=== PATIENT | female | born 1975 | race Caucasian/White ===

== ENCOUNTER 2023-09-01 14:14 | Outpatient (AMB) | payer OTHER, SELFPAY ==
--- NOTE | 2023-09-01 16:32 | AM.OFFWIN_ITS ---
Intake Vital Signs 09/01/23 16:33 Height 5 ft 8 in Weight 151 lb BMI 23.0 BP 136/90 H Blood Pressure Location Rt brachial Position Sitting Pulse 72 Pulse Source Pulse Oximeter Temp 97.8 F Temp Source Temporal Artery Scan Pulse Oximetry (%) 98 Oxygen Delivery Method Room Air Intake Visit Reasons: [employer], back pain [phone] Intake Note: pt is here for c/o back pain due to fall on black ice this morning Patient Tobacco Use Status: Never used Tobacco Allergies No Known Allergies Allergy (Verified 09/06/23 17:45) Medication List - Last Reconciled 09/06/23 by José Miguel Castro MD cyclobenzaprine 10 mg PO BEDTIME escitalopram oxalate 10 mg PO DAILY escitalopram oxalate 20 mg PO DAILY meloxicam 15 mg PO DAILY Do you need a note to return to daycare/school/sports/work: Yes HPI [employer]OCIATE, back pain [phone] HPI Details 48-year-old female presents to the [facility] for a sick visit. Patient reports she slipped this morning on the pavement and fell on her side. She is having difficulty and pain on the right side. Worse on taking a deep breath. PFSH Social History Patient Tobacco Use Status: Never used Tobacco Physical Exam Vital Signs: Last Vital Signs Temp 97.8 F 09/01/23 16:33 Pulse 72 09/01/23 16:33 BP 136/90 H 09/01/23 16:33 Pulse Ox 98 09/01/23 16:33 Oxygen Delivery Method Room Air 09/01/23 16:33 BMI result Body Mass Index 23.0 Const General: cooperative and healthy appearing Nutritional Appearance: well nourished Orientation/consciousness: patient oriented x3 Limitations: no limitations HEENT Head: Yes normal to inspection Eyes General: appearance normal, both eyes and all related structures Neck Neck: Yes normal visual inspection Chest Other: No visible bruising. Tenderness on the right side the chest along the rib margins. Resp Effort & Inspection: normal respiratory effort Neuro General: patient oriented x3 Assessment & Plan Assessment & Plan (1) Contusion of ribs: Code(s): S20.219A - Contusion of unspecified front wall of thorax, initial encounter Plan X-ray of the chest shows multiple rib fractures which are not displaced. Patient was advised to take rest and medication prescribed. If symptoms worsen to follow-up here. Orders: Orders XR ribs RT min 3V w CXR1V 09/01/23 S20.219A - Contusion of unspecified front wall of thorax, initial encounter Medications: New cyclobenzaprine 10 mg PO BEDTIME 14 tabs 0RF cyclobenzaprine 10 mg PO BEDTIME 14 tabs 0RF meloxicam 15 mg PO DAILY 14 tabs 0RF meloxicam 15 mg PO DAILY 14 tabs 0RF Coding Level of Care Code Est Pt Level 4 (72517) Diagnoses Contusion of ribs S20.219A
[2023-09-01 16:33] VITALS: BP 136/90; PULSE 72; TEMP 36.6; O2SAT 98; BMI 23.0
== END 2023-09-01 17:10 | disposition home or self-care (01) ==
PROVIDERS: Visit Provider Internal Medicine
DX: S20.219A Contusion of unspecified front wall of thorax, initial encounter (principal)
CPT/HCPCS: 99214

== ENCOUNTER 2023-09-01 16:51 | Outpatient (REF) | payer OTHER, SELFPAY ==
--- NOTE | ~2023-09-01 | XR_ITS ---
EXAMINATION: XR RIBS, RIGHT CLINICAL INFORMATION: Contusion COMPARISON: None available. TECHNIQUE: 3 views of the right ribs and one view of the chest were obtained. FINDINGS: The cardiac and mediastinal contours are normal. There is subsegmental atelectasis at the left lung base. No pleural effusion or pneumothorax. Surgical clips under the left diaphragm. Right posterior eighth and ninth and 10th minimally displaced acute appearing rib fractures. Older or healing right anterior seventh rib fracture. Left posterior lateral sixth, seventh and eighth rib fractures, question age. XR/XR ribs RT min 3V w CXR1V IMPRESSION: Bilateral rib fractures as described above. Acute minimally displaced right eighth through 10th posterior fractures. Subsegmental atelectasis at the left lung base. Findings will be communicated by the [employer] workflow supply and distribution manager
== END 2023-09-01 16:52 | disposition home or self-care (01) ==
LOC: HO.XRAY 16:51
PROVIDERS: Visit Provider Internal Medicine
DX: S20.211A Contusion of right front wall of thorax, initial encounter (principal)
CPT/HCPCS: 71101